=== PATIENT | female | born 2000 | race Two or more races ===

== ENCOUNTER 2023-12-20 17:19 | Emergency (ER) | payer OTHER ==
[~2023-12-20] VITALS: Ht 162.6 cm; Wt 59.0 kg
[2023-12-20] MEDS ORDERED: CLONAZEPAM1 MG (17:33)
[2023-12-20 19:49] LABS: HEMATOCRIT 38.8 % (36.0-45.00); HEMOGLOBIN 13.2 g/dL (12.0-15.00); MEAN CELL VOLUME 95.4 fL (80.00-100.00); MEAN CORPUSCULAR HEMOGLOBIN 32.3 pg (27.00-32.0); MEAN CORPUSCULAR HGB CONC 33.9 g/dl (32.0-36.0); PLATELET COUNT 294 K/uL (150-450); RED BLOOD COUNT 4.07 M/uL (4.00-6.00); RED CELL DISTRIBUTION WIDTH 12.6 % (11.5-14.5)
[2023-12-20 19:52] LABS: PH,URINE 5.5 (5.0-8.0); URINE APPEARANCE Clear; URINE BILIRRUBIN Negative (NEGATIVE); URINE BLOOD Negative; URINE COLOR Yellow; URINE GLUCOSE Negative (NEGATIVE); URINE KETONE Negative (NEGATIVE); URINE LEUKOCYTE Moderate; URINE NITRATE Negative; URINE PROTEIN Negative (NEGATIVE); URINE UROBILINOGEN 0.2 E.U./dl
[2023-12-20 19:55] LABS: URINE EPITHELIAL CELLS 22.4 uL (0.0-38.8); URINE RBC 33.2 uL (0.0-20.8)
[2023-12-20 20:08] LABS: URINE BACTERIA > 9821.5 uL (0.0-1933); URINE CAST 0.15 uL (0.0-1.40)
[2023-12-20 20:18] LABS: CALCIUM 9.2 mg/dL (8.5-10.1); CREATININE SERUM 0.84 mg/dL (0.55-1.02); GFR 82.61; POTASSIUM 4.48 mEq/L (3.5-5.1)
== END 2023-12-21 01:10 | disposition home or self-care (01) ==
LOC: ER 17:20
PROVIDERS: Emergency Medicine
DX: D25.9 Leiomyoma of uterus, unspecified (principal); N39.0 Urinary tract infection, site not specified